=== PATIENT | male | born 1990 | race Caucasian/White ===

== ENCOUNTER 2017-03-04 19:32 | Emergency (ER) | payer OTHER ==
[~2017-03-04] VITALS: Ht 193 cm; Wt 117.9 kg
--- NOTE | ~2017-03-04 | CR127 ---
[facility] A Service of [facility] / [facility] RADIOLOGY TEXT RESULTS PATIENT: BRADLEY PROCTOR LOCATION: CFTX : [birth year] UNIT #: [id number] AGE: [address]: Ted Rizvi SEX: M ORDER DR: [id number] [facility] [address] [place], [place] [address] [id number] E MR#: [id number] Acc #: [id number] NAME: BRADLEY PROCTOR : 1990 SEX: M STUDY DATE/TIME: 03/04/2017 21:04 UNIT: [facility] ROOM: STUDY DESCRIPTION: CR Foot Complete Min 3 View Rt Attending Physician: Ted Rizvi P.A.-C. Ordering Physician: Ted Rizvi P.A.-C. Primary Care Physician: Lucy Martin Aprn MEDICAL IMAGING REPORT This report is preliminary unless electronic signature is present EXAM Right foot, 3 views. HISTORY Foot pain since yesterday. No specific injury. FINDINGS Three views of the right foot demonstrates no fracture, dislocation, arthritic or inflammatory change. Soft tissues unremarkable. IMPRESSION Negative right foot. Dictated by... María Birmingham M.D. THIS IS AN ELECTRONICALLY VERIFIED REPORT María Birmingham M.D. at 03/05/2017 2:04 PM Andre TD: 03/04/2017 23:31 JOB #: [id number] MEDICAL IMAGING REPORT Page 1 of 1 COPY
[~2017-03-04 19:32] MED LIST: ALPRAZOLAM PO; AMOXICILLIN PO; AMOXICILLIN875 MG PO; CLARITIN10 MG PO; FLOXIN10 ML AD; HYDROCODON-ACE1 EAC7 PO; K-DUR20 ME1 PO; MOTRIN600 MG PO; NO MEDICATIONS; TAMIFLU75 M1 PO; VICODIN 5/1 TAB 5/50 PO; VISTARIL; VISTARIL PO; ZITHROMAX PO
== END 2017-03-04 22:25 | disposition home or self-care (01) ==
LOC: CFTX 19:32 → CED 19:32 → CFTX 21:59
DX: S93.621A Sprain of tarsometatarsal ligament of right foot, initial encounter (principal); F17.210 Nicotine dependence, cigarettes, uncomplicated; Z79.1 Long term (current) use of non-steroidal anti-inflammatories (NSAID); Z91.010 Allergy to peanuts; Z88.8 Allergy status to other drugs, medicaments and biological substances; X50.1XXA Overexertion from prolonged static or awkward postures, initial encounter; Y92.098 Other place in other non-institutional residence as the place of occurrence of the external cause
CPT/HCPCS: 29540; 73630; 99283